=== PATIENT | male | born 1950 | race African-American/Black ===

== ENCOUNTER 2016-08-31 06:39 | Emergency (ER) | payer MEDICARE, MEDICAID ==
[2016-08-31] MEDS ORDERED: Pantoprazole IV* 40 MG IV ONE ×2 (07:23)
[2016-08-31] MEDS ORDERED: NS 0.9% 1000 ML* 1,000 ML IV ONE ×2 (07:23)
[2016-08-31] MEDS ORDERED: Ondansetron ODT TAB* 4 MG PO ONE ×2 (07:23)
--- NOTE | 2016-08-31 08:24 | RAD ---
Indication: Abdominal pain for 2 days. Post cholecystectomy. Comparison: June 02, [address] Technique: Supine AP and LEFT lateral decubitus abdomen views. Report: No evidence for free air. Gallbladder fossa surgical clips corresponding with history of cholecystectomy. Unremarkable bowel gas pattern. 1 cm calcification at the RIGHT upper quadrant visualized just inferior to the costal margin on the supine view and more caudal and medial on the LEFT lateral decubitus view is nonspecific. It may be extrinsic to the patient, within the superficial soft tissues, or intraperitoneal. No urolithiasis evident. Unremarkable soft tissue contours. IMPRESSION: 1. No definitive acute abdominal pelvic pathologic process evident. 2. Relative low suspicion nonspecific peripherally calcified nodule at the RIGHT abdomen as described. This may be extrinsic. Prior to further assessment with CT correlate with extrinsic clothing and consider repeat radiograph exam.
[2016-08-31 08:54] LABS: ALT 72 U/L (7-52); Albumin 3.5 g/dL (3.2-5.2); Alkaline Phosphatase 98 U/L (34-104); Amylase 68 U/L (29-103); BUN/Creatinine Ratio 11.1 (8-20); Blood Urea Nitrogen 11 mg/dL (6-24); C Reactive Protein < 1.00 mg/L (< 5.00); CO2 Carbon Dioxide 28 mmol/L (22-32); Calcium 9.1 mg/dL (8.6-10.3); Chloride 100 mmol/L (101-111); EGFR African American 97.3 (>60); EGFR Non-African American 75.6 (>60); Globulin 4.7 g/dL (2-4); Glucose 117 mg/dL (70-100); Lipase 49 U/L (11.0-82.0); Sodium 137 mmol/L (133-145); Total Protein 8.2 g/dL (6.4-8.9)
[2016-08-31 09:00] LABS: Hematocrit 46 % (42-52); Mean Corpuscular HGB Conc 33 g/dl (31-36); Mean Corpuscular Hemoglobin 27 pg (27-31); Mean Corpuscular Volume 82 fL (80-94); Mean Platelet Volume 8 um3 (7.4-10.4); Red Blood Count 5.56 10^6/ul (4.0-5.4); Red Cell Distribution Width 15 % (10.5-15); White Blood Count 10.2 10^3/ul (3.5-10.8)
[2016-08-31 11:20] VITALS: BP 192/103
--- NOTE | 2016-08-31 12:52 | ED ---
Da Duval Auryana, scribed for Eyal Botello MD on 08/31/16 at 0741 . GI/ HPI - HPI Summary HPI Summary: 66 year old male presents with diarrhea starting a few days ago. He also reports a burning sensation in his stomach, epigastric abdominal cramps, and now today, constant nausea and vomiting. Yesterday, he reports bright red blood with BM. He denies any straining with BMs. No recent travel, abnormal foods, ABX , or any family members/friends with recent illnesses. PMHx is significant for HTN, Hep C, hiatal hernia, and gastric ulcers. He denies DM any surgeries. Social history is significant for tobacco and alcohol use. He denies any recreational drug use within the last 2 months. - History of Current Complaint Chief Complaint: EDGIBleed Time Seen by Provider: 08/31/16 07:18 Stated Complaint: GENERAL Hx Obtained From: Patient Onset/Duration: Started Days Ago - few days ago, Still Present Timing: Constant Severity: Mild Current Severity: Mild Vaginal Bleeding Description: Bright Red - with BMs Location of Pain: Diffuse - EPIGASTRIC Pain Characteristics: Cramping, Burning Associated Signs and Symptoms: Positive: Nausea, Vomiting, Blood w/Stool, Diarrhea Aggravating Factor(s): Nothing - Allergy/Home Medications Allergies/Adverse Reactions: Allergies Allergy/AdvReac Type Severity Reaction Status Date / Time No Known Allergies Allergy Verified 02/21/14 19:58 PMH/Surg Hx/FS Hx/Imm Hx Endocrine/Hematology History: Reports: Other Endocrine/Hematological Disorders - HEP C Cardiovascular History: Reports: Hx Hypertension GI History: Reports: Hx Hiatal Hernia, Hx Ulcer - GASTRIC Infectious Disease History: Yes Infectious Disease History: Denies: Traveled Outside the [place] in Last 30 Days - Social History Occupation: Unemployed Lives: With Family - WITH MALE FRIEND Alcohol Use: Rare Substance Use Type: Reports: None Smoking Status (MU): Light Every Day Tobacco Smoker Review of Systems Constitutional: Negative Negative: Fever Eyes: Negative ENT: Negative Cardiovascular: Negative Respiratory: Negative Positive: Abdominal Pain - CRAMPING AND BURNING SENSATION, Vomiting, Diarrhea - WITH BLOOD , Nausea Genitourinary: Negative Musculoskeletal: Negative Skin: Negative Neurological: Negative Psychological: Normal All Other Systems Reviewed And Are Negative: Yes Physical Exam - Summary Physical Exam Summary: VITAL SIGNS: Reviewed. GENERAL: Patient is a well developed and nourished male who is lying comfortable in the stretcher. Patient is not in any acute respiratory distress. Acute pain distress. HEAD AND FACE: Normocephalic and atraumatic. EYES: PERRLA, EOMI x 2, No injected conjunctiva. EARS: Hearing grossly intact. Ear canals and tympanic membranes are WNL. MOUTH: Oropharynx within normal limits. NECK: Supple, trachea is midline, no adenopathy, no JVD. CHEST: Symmetric, no tenderness at palpation LUNGS: Clear to auscultation bilaterally. No wheezing or crackles. CVS: RRR,, S1 and S2 present, no murmurs or gallops appreciated. ABDOMEN: Soft, tenderness in the epigastric area. No signs of distention. Positive bowel sounds. No rebound no guarding, and no masses palpated. No abdominal bruit or pulsations. EXTREMITIES: FROM in all major joints, no edema, no cyanosis or clubbing. NEURO: Alert and oriented x 3. No acute neurological deficits. Speech is normal. SKIN: Dry and warm Triage Information Reviewed: Yes Vital Signs On Initial Exam: Initial Vitals Temp Pulse Resp BP Pulse Ox 97.4 F 71 16 175/100 100 08/31/16 06:51 08/31/16 06:51 08/31/16 06:51 08/31/16 06:51 08/31/16 06:51 Vital Signs Reviewed: Yes Diagnostics - Vital Signs Vital Signs Temp Pulse Resp BP Pulse Ox 08/31/16 06:51 97.4 F 71 16 175/100 100 - Laboratory Lab Results: Lab Results 08/31/16 08/31/16 08/31/16 Range/Units 07:45 08:46 08:46 WBC 10.2 (3.5-10.8) 10^3/ul RBC 5.56 H (4.0-5.4) 10^6/ul Hgb 15.0 (14.0-18.0) g/dl Hct 46 (42-52) % MCV 82 (80-94) fL MCH 27 (27-31) pg MCHC 33 (31-36) g/dl RDW 15 (10.5-15) % Plt Count 229 (150-450) 10^3/ul MPV 8 (7.4-10.4) um3 Neut % (Auto) 74.1 (38-83) % Lymph % (Auto) 15.2 L (25-47) % Candler % (Auto) 8.6 (1-9) % Eos % (Auto) 1.4 (0-6) % Baso % (Auto) 0.7 (0-2) % Absolute Neuts (auto) 7.6 (1.5-7.7) 10^3/ul Absolute Lymphs (auto) 1.6 (1.0-4.8) 10^3/ul Absolute Monos (auto) 0.9 H (0-0.8) 10^3/ul Absolute Eos (auto) 0.1 (0-0.6) 10^3/ul Absolute Basos (auto) 0.1 (0-0.2) 10^3/ul Absolute Nucleated RBC 0.02 10^3/ul Nucleated RBC % 0.2 INR (Anticoag Therapy) (0.89-1.11) APTT (26.0-36.3) seconds Sodium 137 (133-145) mmol/L Potassium TNP Chloride 100 L (101-111) mmol/L Carbon Dioxide 28 (22-32) mmol/L Anion Gap TNP BUN 11 (6-24) mg/dL Creatinine 0.99 (0.67-1.17) mg/dL Est GFR ( Amer) 97.3 (>60) Est GFR (Non-Af Amer) 75.6 (>60) BUN/Creatinine Ratio 11.1 (8-20) Glucose 117 H (70-100) mg/dL Lactic Acid 1.5 (0.5-2.0) mmol/L Calcium 9.1 (8.6-10.3) mg/dL Total Bilirubin 0.60 (0.2-1.0) mg/dL AST TNP ALT 72 H (7-52) U/L Alkaline Phosphatase 98 (34-104) U/L C-Reactive Protein < 1.00 (< 5.00) mg/L Total Protein 8.2 (6.4-8.9) g/dL Albumin 3.5 (3.2-5.2) g/dL Globulin 4.7 H (2-4) g/dL Albumin/Globulin Ratio 0.7 L (1-3) Amylase 68 (29-103) U/L Lipase 49 (11.0-82.0) U/L 08/31/16 Range/Units 08:46 WBC (3.5-10.8) 10^3/ul RBC (4.0-5.4) 10^6/ul Hgb (14.0-18.0) g/dl Hct (42-52) % MCV (80-94) fL MCH (27-31) pg MCHC (31-36) g/dl RDW (10.5-15) % Plt Count (150-450) 10^3/ul MPV (7.4-10.4) um3 Neut % (Auto) (38-83) % Lymph % (Auto) (25-47) % Candler % (Auto) (1-9) % Eos % (Auto) (0-6) % Baso % (Auto) (0-2) % Absolute Neuts (auto) (1.5-7.7) 10^3/ul Absolute Lymphs (auto) (1.0-4.8) 10^3/ul Absolute Monos (auto) (0-0.8) 10^3/ul Absolute Eos (auto) (0-0.6) 10^3/ul Absolute Basos (auto) (0-0.2) 10^3/ul Absolute Nucleated RBC 10^3/ul Nucleated RBC % INR (Anticoag Therapy) 0.91 (0.89-1.11) APTT 30.0 (26.0-36.3) seconds Sodium (133-145) mmol/L Potassium Chloride (101-111) mmol/L Carbon Dioxide (22-32) mmol/L Anion Gap BUN (6-24) mg/dL Creatinine (0.67-1.17) mg/dL Est GFR ( Amer) (>60) Est GFR (Non-Af Amer) (>60) BUN/Creatinine Ratio (8-20) Glucose (70-100) mg/dL Lactic Acid (0.5-2.0) mmol/L Calcium (8.6-10.3) mg/dL Total Bilirubin (0.2-1.0) mg/dL AST ALT (7-52) U/L Alkaline Phosphatase (34-104) U/L C-Reactive Protein (< 5.00) mg/L Total Protein (6.4-8.9) g/dL Albumin (3.2-5.2) g/dL Globulin (2-4) g/dL Albumin/Globulin Ratio (1-3) Amylase (29-103) U/L Lipase (11.0-82.0) U/L Result Diagrams: 08/31/16 08:46 08/31/16 07:45 Lab Statement: Any lab studies that have been ordered have been reviewed, and results considered in the medical decision making process. - Radiology ABD XR Xray Interpretation: No Acute Changes - IMPRESSION: 1. No definitive acute abdominal pelvic pathologic process evident. 2. Relative low suspicion nonspecific peripherally calcified nodule at the RIGHT abdomen as described. This may be extrinsic. Prior to further assessment with CT correlate with extrinsic clothing and consider repeat radiograph exam. Radiology Interpretation Completed By: Radiologist MEHDI Course/Dx - Course Course Of Treatment: 66 year old male presents with diarrhea starting a few days ago. He also reports a burning sensation in his stomach, epigastric abdominal cramps, and now today, constant nausea and vomiting. Yesterday, he reports bright red blood with BM. He denies any straining with BMs. No recent travel, abnormal foods, ABX, or any family members/friends with recent illnesses. PMHx is significant for HTN, Hep C, hiatal hernia, and gastric ulcers. He denies DM any surgeries. Social history is significant for tobacco and alcohol use. He denies any recreational drug use within the last 2 months. Assessment/Plan: test result WNL except for glucose of 117, ALT 72. ABD XR- IMPRESSION: 1. No definitive acute abdominal pelvic pathologic process evident. 2. Relative low suspicion nonspecific peripherally calcified nodule at the RIGHT abdomen as described. This may be extrinsic. Prior to further assessment with CT correlate with extrinsic clothing and consider repeat radiograph exam. In the ER course, he was given fluids and zofran for N/V. Symptoms have improved at this time. The patient reported that he was very hungry and therefore he was given a sandwich with fluids and patient felt much better. He denies any nausea, vomiting or abd pain. I discussed the test results and imaging of the XR with patient and reccomended follow up with PCP. He was told specificly of the calcified nodule in the right abdomen. Patient agreed to discharge. Patient was hemodynamically stable and A&O x3 on discharge. Patient has an slight swelling in the left side of the left forearm for the last 3 months. No signs of abcess. - Diagnoses Differential Diagnoses - Male: Gastroenteritis (Bacterial), Gastroenteritis ( Viral), Gerd Provider Diagnoses: Nausea & vomiting, Acute diarrhea Discharge - Discharge Plan Condition: Stable Disposition: HOME Patient Education Materials: Acute Nausea and Vomiting (ED), Acute Diarrhea (ED ) Referrals: Irina Kramer, PULVERIZER [Primary Care Provider] - 3 Days The documentation as recorded by the Da mijares Auryana accurately reflects the service I personally performed and the decisions made by Ayan buchanan Walter, MD.
--- NOTE | 2016-09-05 08:35 | PN ---
Progress Note - Progress Note Note: Stool cultures did not grow anything of significance so no further action needed.
== END 2016-08-31 11:20 | disposition home or self-care (01) ==
LOC: ED 06:39
DX: R11.2 Nausea with vomiting, unspecified (principal); R19.7 Diarrhea, unspecified; R10.13 Epigastric pain
CPT/HCPCS: 36415; 74020; 80053; 82150; 82270; 83605; 83630; 83690; 85025; 85610; 85730; 86140; 87045; 87046; 87077; 87493; 87899; 99283; A9270-GY

== ENCOUNTER 2018-03-14 03:47 | Emergency (ER) | payer MEDICARE, MEDICAID ==
--- NOTE | 2018-03-14 04:00 | ED ---
Headache - HPI Summary HPI Summary: This patient is a 67 year old M presenting to [facility] with a chief complaint of headache that began tonight. The patient rates the pain 10/10 in severity. Patient reports facial tingling. Patient denies n/v/d, fever, and neck stiffness. He states he had similar sx and was admitted due to uncontrolled HTN. - History Of Current Complaint Chief Complaint: EDHeadache Stated Complaint: GENERAL ILLNESS Hx Obtained From: Patient Onset/Duration: Still Present Initially Headache Was: Initial Pain Scale(0-10)= - 10 Currently Pain Is: Current Pain Scale(0-10)= - 10 Timing: Constant Associated Signs And Symptoms: Negative - n/v/d - Allergies/Home Medications Allergies/Adverse Reactions: Allergies Allergy/AdvReac Type Severity Reaction Status Date / Time No Known Allergies Allergy Verified 03/14/18 04:09 Home Medications: Home Medications Albuterol Sulfate [Ventolin Hfa] 1 puff INH SEE INSTRUCTIONS PRN 03/14/18 [ History Confirmed 03/14/18] Lisinopril/HCTZ 20/25(NF) [Zestoretic 20/25(NF)] 1 tab PO DAILY 03/14/18 [ History Confirmed 03/14/18] Omeprazole 20 mg PO DAILY 03/14/18 [History Confirmed 03/14/18] PMH/Surg Hx/FS Hx/Imm Hx Endocrine/Hematology History: Reports: Other Endocrine/Hematological Disorders - HEP C Cardiovascular History: Reports: Hx Hypertension Respiratory History: Denies: Hx Chronic Obstructive Pulmonary Disease (COPD) GI History: Reports: Hx Hiatal Hernia, Hx Ulcer - GASTRIC Infectious Disease History: No Infectious Disease History: Denies: Traveled Outside the [place] in Last 30 Days - Family History Known Family History: Positive: Hypertension - Social History Alcohol Use: Rare Substance Use Type: Reports: None Smoking Status (MU): Light Every Day Tobacco Smoker Review of Systems Negative: Fever Negative: Vomiting, Diarrhea, Nausea Musculoskeletal: Negative - neck stiffness Positive: Headache All Other Systems Reviewed And Are Negative: Yes Physical Exam - Summary Physical Exam Summary: VITAL SIGNS: Reviewed. GENERAL: Patient is a well-developed and nourished male who is lying comfortable in the stretcher. Patient is not in any acute respiratory distress. HEAD AND FACE: No signs of trauma. No ecchymosis, hematomas or skull depressions. No sinus tenderness. EYES: PERRLA, EOMI x 2, No injected conjunctiva, no nystagmus. EARS: Hearing grossly intact. Ear canals and tympanic membranes are within normal limits. MOUTH: Oropharynx within normal limits. NECK: Supple, trachea is midline, no adenopathy, no JVD, no carotid bruit, no c- spine tenderness, neck with full ROM. CHEST: Symmetric, no tenderness at palpation LUNGS: Clear to auscultation bilaterally. No wheezing or crackles. CVS: Regular rate and rhythm, S1 and S2 present, no murmurs or gallops appreciated. ABDOMEN: Soft, non-tender. No signs of distention. No rebound no guarding, and no masses palpated. Bowel sounds are normal. EXTREMITIES: FROM in all major joints, no edema, no cyanosis or clubbing. NEURO: Alert and oriented x 3. No acute neurological deficits. Speech is normal and follows commands. SKIN: Dry and warm Triage Information Reviewed: Yes Vital Signs On Initial Exam: Initial Vitals Temp Pulse Resp BP Pulse Ox 98.5 F 85 16 172/106 98 03/14/18 03:48 03/14/18 03:48 03/14/18 03:48 03/14/18 03:48 03/14/18 03:48 Vital Signs Reviewed: Yes Diagnostics - Vital Signs Vital Signs Temp Pulse Resp BP Pulse Ox 03/14/18 03:48 98.5 F 85 16 172/106 98 - Laboratory Lab Statement: Any lab studies that have been ordered have been reviewed, and results considered in the medical decision making process. Re-Evaluation - Re-Evaluation First Eval Re-Evaluation Time: 04:44 Comment: The patient is refusing medications and would like to go home. Headache Course/Dx - Course Assessment/Plan: This patient is a 67 year old M presenting to [facility] with a chief complaint of headache that began tonight. The patient rates the pain 10/ 10 in severity. Patient reports facial tingling. Patient denies n/v/d, fever, and neck stiffness. He states he had similar sx and was admitted due to uncontrolled HTN. The patient is leaving against medical advice. He states he forgot his phone and wants to go home and see his daughter. He was warned about the following possible conditions worsening sx, stroke, permanent disability, and . - Diagnoses Provider Diagnoses: Left against medical advice, Headache, HTN (hypertension) Discharge - Sign-Out/Discharge Documenting (check all that apply): Patient Departure - AMA - Discharge Plan Condition: Fair Disposition: AGAINST MEDICAL ADVICE Patient Education Materials: Acute Headache (ED), Chronic Hypertension (ED) Referrals: Junior Stahl MD [Primary Care Provider] - 1 Day Additional Instructions: RETURN TO THE EMERGENCY DEPARTMENT FOR CHANGING OR WORSENING SYMPTOMS - Attestation Statements Document Initiated by Scribe: Yes Documenting Scribe: Jackson Richardson Provider For Whom Scribe is Documenting (Include Credential): Wily Muñoz MD Scribe Attestation: Jackson Duval , scribed for Wily Muñoz MD on 03/14/18 at 0451. Status of Scribe Document: Ready
[2018-03-14] MEDS ORDERED: Labetalol IV* 5 MG/ML 20 ML VIAL IV PUSH ONE (04:16)
[2018-03-14] MEDS ORDERED: Metoclopramide IV* 5 MG/ML 2 ML VIAL IV SLOW PU ONE (04:17)
[2018-03-14] MEDS ORDERED: Ketorolac INJ* 30 MG/ML 1 ML VIAL IV PUSH ONE (04:17)
[2018-03-14] MEDS ORDERED: diPHENhydraMINE PO* 50 MG PO ONE (04:17)
[2018-03-14] MEDS ORDERED: cloNIDine TAB* 0.1 MG PO ONE (04:46)
[2018-03-14] MEDS ORDERED: Ibuprofen TAB* 400 MG PO ONE (04:46)
[2018-03-14 05:04] VITALS: BP 177/107
== END 2018-03-14 05:03 | disposition left against medical advice (07) ==
LOC: ED 03:47
DX: R51 Headache (principal); I10 Essential (primary) hypertension; F17.200 Nicotine dependence, unspecified, uncomplicated
CPT/HCPCS: 99282; A9270-GY; J1885; J2765

== ENCOUNTER 2018-12-27 01:40 | Emergency (ER) | payer MEDICARE, MEDICAID ==
--- NOTE | 2018-12-27 02:35 | ED ---
Substance Abuse/Use - HPI Summary HPI Summary: Patient is a 68 y/[facility]. He states that he snorted around half a gram of heroin 45 minutes ago. He states that he felt that he was falling asleep and was concerned for overdose. Patient was with friends and was brought to ED by friend. Patient notes that he has not used heroin in about a month and notes that he uses it periodically. At present , patient is alert and oriented x3. Home medications and allergies are reviewed. - History Of Current Complaint Chief Complaint: EDOverdose Stated Complaint: POS OVERDOSE PER PT Time Seen by Provider: 12/27/18 01:56 Hx Obtained From: Patient Onset/Duration of Drug/ETOH Abuse: Minutes Ingestion History: Type/Name Of Drug - heroin, Amount Ingested - around half a gram, Approximate Time Of Ingestion - around 0100 Overdose Characteristics: Inhalation - snorted Timing Of Abuse: Intermittent Aggravating Factor(s): Nothing Alleviating Factor(s): Nothing Associated Signs And Symptoms: Negative - Allergies/Home Medications Allergies/Adverse Reactions: Allergies Allergy/AdvReac Type Severity Reaction Status Date / Time No Known Allergies Allergy Verified 12/27/18 01:43 PMH/Surg Hx/FS Hx/Imm Hx Endocrine/Hematology History: Reports: Other Endocrine/Hematological Disorders - HEP C Cardiovascular History: Reports: Hx Hypertension Respiratory History: Denies: Hx Chronic Obstructive Pulmonary Disease (COPD) GI History: Reports: Hx Hiatal Hernia, Hx Ulcer - GASTRIC Infectious Disease History: No Infectious Disease History: Denies: Traveled Outside the [place] in Last 30 Days - Family History Known Family History: Positive: Hypertension - Social History Alcohol Use: Rare Substance Use Type: Reports: Heroin Smoking Status (MU): Light Every Day Tobacco Smoker Review of Systems Constitutional: Other - positive - heroin usage, feeling sleepy Neurological: Other - positive - alert and oriented x3 All Other Systems Reviewed And Are Negative: Yes Physical Exam - Summary Physical Exam Summary: Appearance: Well-appearing, Well-nourished, lying in bed comfortably Skin: Warm, dry, no obvious rash Eyes: sclera anicteric, no conjunctival pallor; pinpoint pupils are noted ENT: mucous membranes moist, pharynx appears normal Neck: Supple, nontender Respiratory: Clear to auscultation, no signs of respiratory distress Cardiovascular: Normal S1, S2. No murmurs. Normal distal pulses in tibial and radial bilaterally. Abdomen: Soft, nontender, normal active bowel sounds present Musculoskeletal: Normal, Strength/ROM Intact Neurological: A&Ox3, awake and alert, mentation is normal, speech is fluent and appropriate Psychiatric: affect is normal, does not appear anxious or depressed Triage Information Reviewed: Yes Vital Signs On Initial Exam: Initial Vitals Temp Pulse Resp BP Pulse Ox 96.8 F 106 16 175/109 98 12/27/18 01:42 12/27/18 01:42 12/27/18 01:42 12/27/18 01:42 12/27/18 01:42 Vital Signs Reviewed: Yes Diagnostics - Vital Signs Vital Signs Temp Pulse Resp BP Pulse Ox 12/27/18 01:42 96.8 F 106 16 175/109 98 - Laboratory Lab Statement: Any lab studies that have been ordered have been reviewed, and results considered in the medical decision making process. Course/Dx - Course Course Of Treatment: Patient is a 68 y/o M presenting to [facility] for concerns of heroin overdose. He states that he snorted around half a gram of heroin 45 minutes ago. He states that he felt that he was falling asleep and was concerned for overdose. Patient was with friends and was brought to ED by friend. Patient notes that he has not used heroin in about a month and notes that he uses it periodically. Patient has pinpoint pupils but is alert and oriented x3. He did not require narcan. Patient was discharged from ED. - Diagnoses Provider Diagnoses: Heroin use Discharge ED - Sign-Out/Discharge Documenting (check all that apply): Patient Departure - discharge Patient Received Moderate/Deep Sedation with Procedure: No - Discharge Plan Condition: Good Disposition: HOME Patient Education Materials: Narcotic Safety (ED) Referrals: Junior Stahl MD [Primary Care Provider] - - Billing Disposition and Condition Condition: GOOD Disposition: Home - Attestation Statements Document Initiated by Makenzie: Yes Documenting Scribe: ZEN GONCALVES Provider For Whom Makenzie is Documenting (Include Credential): MELISSA MACKEY MD Scribe Attestation: ZEN Duval, scribed for MELISSA MACKEY MD on 12/31/18 at 0613. Scribe Documentation Reviewed: Yes Provider Attestation: The documentation as recorded by the ZEN mijares accurately reflects the service I personally performed and the decisions made by me, MELISSA MACKEY MD Status of Scribe Document: Viewed
[2018-12-27 03:19] VITALS: BP 146/84
== END 2018-12-27 03:20 | disposition home or self-care (01) ==
LOC: ED 01:40
DX: F15.90 Other stimulant use, unspecified, uncomplicated (principal); I10 Essential (primary) hypertension; F17.200 Nicotine dependence, unspecified, uncomplicated; Z79.899 Other long term (current) drug therapy
CPT/HCPCS: 99282

== ENCOUNTER 2024-05-18 18:31 | Observation (INO) ==
[2024-05-18 21:39] LABS: ABS Basophils 0.1 10^3/uL (0.0-0.1); ABS Eosinophils 0.2 10^3/uL (0.0-0.5); ABS Lymphocytes 1.5 10^3/uL (1.0-4.8); ABS Monocytes 0.8 10^3/uL (0.0-1.1); ABS Neutrophils 3.7 10^3/uL (1.5-7.6); ABS Nucleated RBC 0.03 10^3/ul; Eosinophil % 3.4 %; Hematocrit 50.5 % (38-53); Hemoglobin 15.7 g/dL (13.2-16.3); Mean Corpuscular Hemoglobin 28.1 pg (27-33); Mean Corpuscular Hgb Conc 31.1 g/dL (31-36); Mean Corpuscular Volume 90.4 fL (80-97); Mean Platelet Volume 7.9 fL (7.5-11.2); Nucleated Red Blood Cells % 0.5 %/100WBC (0.0-0.8); Platelet Count 198 10^3/uL (150-450); Red Blood Count 5.58 10^6/uL (4.06-5.63); Red Cell Distribution Width 18.1 % (12-17); White Blood Count 6.3 10^3/uL (3.6-10.2)
[2024-05-18 22:14] LABS: ALT 29 U/L (7-52); Albumin/Globulin Ratio 1.1 (1-3); Alkaline Phosphatase 98 U/L (35-149); Anion Gap 8 mmol/L (2-16); Blood Urea Nitrogen 8 mg/dL (6-24); CO2 Carbon Dioxide 22 mmol/L (22-32); Calcium 8.9 mg/dL (8.6-10.3); Chloride 107 mmol/L (101-111); Creatinine, Serum 1.24 mg/dL (0.67-1.17); Globulin 3.8 g/dL (2-4); Glucose 88 mg/dL (70-100); Sodium 137 mmol/L (135-145); Total Bilirubin 0.5 mg/dL (0.2-1.0); Total Protein 7.8 g/dL (6.4-8.9)
[2024-05-18 22:50] LABS: High Sens Troponin Baseline 61 pg/mL (<20)
[2024-05-18 22:56] LABS: INR 1.14 (0.85-1.14)
[2024-05-19 04:09] LABS: HDL Cholesterol 37.3 mg/dL
[2024-05-19 04:35] LABS: High Sensitivity Troponin 1 Hr 30 pg/mL (<20)
[2024-05-19 05:52] LABS: ABS Basophils 0.1 10^3/uL (0.0-0.1); ABS Eosinophils 0.2 10^3/uL (0.0-0.5); ABS Lymphocytes 1.4 10^3/uL (1.0-4.8); ABS Monocytes 0.6 10^3/uL (0.0-1.1); ABS Neutrophils 2.8 10^3/uL (1.5-7.6); ABS Nucleated RBC 0.01 10^3/ul; Eosinophil % 3.8 %; Hematocrit 41.9 % (38-53); Lymphocyte % 28.2 %; Mean Corpuscular Hemoglobin 27.5 pg (27-33); Mean Corpuscular Hgb Conc 33.4 g/dL (31-36); Mean Corpuscular Volume 82.4 fL (80-97); Mean Platelet Volume 7.8 fL (7.5-11.2); Nucleated Red Blood Cells % 0.2 %/100WBC (0.0-0.8); Platelet Count 255 10^3/uL (150-450); Red Blood Count 5.09 10^6/uL (4.06-5.63); Red Cell Distribution Width 16.3 % (12-17)
[2024-05-19 06:07] LABS: Potassium Redraw 4.1 mmol/L (3.5-5.0)
[2024-05-19 06:09] LABS: Calcium 8.9 mg/dL (8.6-10.3); Creatinine, Serum 1.1 mg/dL (0.67-1.17); Potassium 4.1 mmol/L (3.5-5.0); eGFR CKD-EPI 70.4 (>60)
[2024-05-19] MEDS: Heparin 5000 UNITS/ML 1 mL VIAL SUBCUT SCH (07:08)
[2024-05-19] MEDS ORDERED: Aminophylline 25 MG/ML VIAL ONE (08:33)
[2024-05-19] MEDS ORDERED: Regadenoson 0.4 MG/5 ML SYRINGE ONE (08:34)
[2024-05-19] MEDS: Sulfur Hexaflouride MICROSPHR 25 MG VIAL IV PRN (15:15)
[2024-05-19] MEDS: Iohexol 350 (CONTRAST) 500 ML MDV IV ONE (15:35)
[2024-05-19 17:07] LABS: Hepatitis C Antibody Reactive (Negative)
[2024-05-19 18:42] VITALS: BP 133/86
== END 2024-05-19 19:15 ==
LOC: ED 18:31 → EDHOLD 18:31 → SUATTDRO 05-19 00:40 → MEDTELE 05-19 07:44
PROVIDERS: ADMIT Internal Medicine; ATTEND Internal Medicine